=== PATIENT | female | born 1990 | race Caucasian/White ===

== ENCOUNTER 2019-01-10 09:43 | Emergency (ER) | payer BC ==
[2019-01-10 10:02] VITALS: BP 133/88
--- NOTE | 2019-01-10 10:44 | UC ---
Dental HPI - HPI Summary HPI Summary: 28 y/o female presents to the urgent care c/o RT upper toothache and swelling next to an implant that was done before since Monday01/07/2019. Pt reports she went to see her dentist and did an X-ray and referred her to an Customer Service Advisor in [place]. She has an appt next Monday01/14/2019. Pt states pain worsen last night. She has been taking Ibuprofen and Aleve PO w/o any improvement. Last year when she got the implant done she was Rx oxycodone which really helped her w/ pain. She called her Dentist this morning and was advised to come here to the urgent care. Pt is allergic to Acetaminophen. Pt denies fever, SOB, trismus , BARRERA, abdominal pain, N/V/D. - History of Current Complaint Chief Complaint: UCDentalProblem Stated Complaint: TOOTHACHE Time Seen by Provider: 01/10/19 10:43 Hx Obtained From: Patient Hx Last Menstrual Period: 12/20/18 ?: No Onset/Duration: Gradual Onset, Lasting Days - 4 days, Still Present, Worse Since - last night Severity: Severe Pain Intensity: 9 Pain Scale Used: 0-10 Numeric Aggravating Factor(s): Chewing Alleviating Factor(s): OTC Meds Related History: Swelling - Allergies/Home Medications Allergies/Adverse Reactions: Allergies Allergy/AdvReac Type Severity Reaction Status Date / Time No Known Allergies Allergy Verified 01/10/19 10:02 Home Medications: Home Medications Gabapentin 400 mg PO DAILY 01/10/19 [History Confirmed 01/10/19] Lisdexamfetamine Dimesylate [Vyvanse] 40 mg PO DAILY 01/10/19 [History Confirmed 01/10/19] Omeprazole 40 mg PO DAILY 01/10/19 [History Confirmed 01/10/19] QUEtiapine TAB* [Seroquel 100 MG *] 100 mg PO DAILY 01/10/19 [History Confirmed 01/10/19] cloNIDine TAB* [Catapres 0.1 MG TAB*] 1 tab PO DAILY 01/10/19 [History Confirmed 01/10/19] PMH/Surg Hx/FS Hx/Imm Hx Previously Healthy: Yes GI/ History: Gastroesophageal Reflux Psychological History: Anxiety, Depression - Surgical History Surgical History: Yes Surgery Procedure, Year, and Place: wisdom teeth - Family History Known Family History: Positive: None - Pt denies FMHX - Social History Occupation: Employed Full-time Lives: With Family Alcohol Use: None 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 Substance Use Type: None Substance Use Comment - Amount & Last Used: Last use within the month Smoking Status (MU): Current Some Day Smoker Review of Systems All Other Systems Reviewed And Are Negative: Yes Constitutional: Positive: Negative Skin: Positive: Negative Eyes: Positive: Negative ENT: Positive: Dental Pain - Rt upper jaw pain w// mild swelling Respiratory: Positive: Negative Cardiovascular: Positive: Negative Gastrointestinal: Positive: Negative Genitourinary: Positive: Negative Motor: Positive: Negative Neurovascular: Positive: Negative Musculoskeletal: Positive: Negative Neurological: Positive: Negative Psychological: Positive: Negative Is Patient Immunocompromised?: No Physical Exam - Summary Physical Exam Summary: Vital Signs Reviewed: Yes General: Well-Appearing, Well-Nourished female sitting in the examining table w /o any respiratory or pain distress Eyes: Positive: Conjunctiva Clear - PERRLA, EOMI, ENT: Positive: Normal ENT inspection, Hearing grossly normal, Pharynx normal, TMs normal - B/L external ear canals clear,. Negative: Tonsillar swelling, Tonsillar exudate, Trismus Dental: Positive: Positive gingival swelling and erythema, tender to percussion involves tissue surrounding molar #4, positive implant on molar #3, w/ positive anterior Cervical Lymphadenopathy. Neck: Positive: Supple Respiratory: Positive: Chest non-tender, Lungs clear, Normal breath sounds, No respiratory distress Cardiovascular: Positive: RRR, No Murmur, Pulses Normal, Brisk Capillary Refill Abdomen Description: Positive: Nontender, No Organomegaly, Soft. Negative: CVA Tenderness (R), CVA Tenderness (L) Bowel Sounds: Positive: Present Musculoskeletal: Positive: Strength Intact, ROM Intact, No Edema Neurological Exam: Normal Psychological Exam: Normal Skin Exam: Normal Triage Information Reviewed: Yes Vital Signs: Initial Vital Signs Temp 97.8 F 01/10/19 09:58 Pulse 95 01/10/19 09:58 Resp 16 01/10/19 09:58 BP 133/88 01/10/19 09:58 Pulse Ox 100 01/10/19 09:58 Dental Complaint Course/Dx - Course Course Of Treatment: 28 y/o female presents to the urgent care c/o RT upper toothache and swelling next to an implant that was done before since Monday01/07/2019. Pt reports she went to see her dentist and did an X-ray and referred her to an Customer Service Advisor in [place]. She has an appt next Monday01/14/2019. Pt states pain worsen last night. She has been taking Ibuprofen and Aleve PO w/o any improvement. Last year when she got the implant done she was Rx oxycodone which really helped her w/ pain. She called her Dentist this morning and was advised to come here to the urgent care. Pt is allergic to Acetaminophen. Pt denies fever, SOB, trismus , BARRERA, abdominal pain, N/V/D. Hx obtained. Pt w/ possible dental abscess on molar #4 w/ implant on molar #3 on examination. Pt given viscous Lidocaine at the clinic to alleviate symptoms by the nurse. Pt Rx Clindamycin PO and Oxycodone PO as directed below. Pt strongly advised to f/u with Dentist or Customer Service Advisor as soon as possible further evaluation and treatment. D/C instructions explained. Mother and Pt understood and agreed with plan of care. - Differential Dx/Diagnosis Differential Diagnosis/Dx: Dental Abscess, Dental Caries, Odontogenic Pain, Peridontic Disease, Peritonsillar Abcess Provider Diagnosis: Dental abscess, Toothache Discharge - Sign-Out/Discharge Documenting (check all that apply): Patient Departure - D/c home All imaging exams completed and their final reports reviewed: No Studies - Discharge Plan Condition: Stable Disposition: HOME Prescriptions: Clindamycin Cap(NF) [Clindamycin Cap 300 mg Cap(NF)] 300 mg PO TID #30 cap Lidocaine 2% VISCOUS* [Xylocaine 2% Viscous*] 15 ml SWISH SPIT Q6H PRN #1 btl PRN Reason: Dental pain oxyCODONE TAB* [Roxycodone TAB 5 mg*] 5 mg PO Q8H PRN #9 tab MDD 15g/day PRN Reason: dental pain Patient Education Materials: Dental Abscess (ED) Referrals: Keli Fajardo MD [Primary Care Provider] - 2 Days Additional Instructions: 1-Please take full course of antibiotic to avoid resistance. Take Culturelle or yogurt w/ probiotics to protect your GI system. 2- Take Oxycodone PO as directed as instructed after meals to alleviate pain and swelling. 3- F/u with your Customer Service Advisor on your appt next week or sooner if possible for further treatment. 4- If symptoms do not improve or worsen please f/u with your PCP in 3 days for further evaluation and treatment - Billing Disposition and Condition Condition: STABLE Disposition: Home
[2019-01-10] MEDS ORDERED: Lidocaine 2% VISCOUS* 15 ML UDC SWISH SPIT ONE (10:55)
== END 2019-01-10 11:33 | disposition home or self-care (01) ==
LOC: UCEAST 09:43
DX: K08.89 Other specified disorders of teeth and supporting structures (principal); K04.7 Periapical abscess without sinus; F17.200 Nicotine dependence, unspecified, uncomplicated; K21.9 Gastro-esophageal reflux disease without esophagitis; F41.9 Anxiety disorder, unspecified; F32.9 Major depressive disorder, single episode, unspecified; Z79.899 Other long term (current) drug therapy
CPT/HCPCS: 99212; G0463